=== PATIENT | female | born 1980 | race Caucasian/White ===

== ENCOUNTER 2018-10-14 10:50 | Emergency (ER) | payer MEDICAID ==
[~2018-10-14] VITALS: Ht 165.1 cm; Wt 86.2 kg
--- NOTE | 2018-10-14 10:53 | NUR ---
PATIENT AMBULATED TO BED 3 AT THIS TIME.
[2018-10-14 10:56] VITALS: BP 91/66
--- NOTE | 2018-10-14 11:00 | NUR ---
PT BIB self c/o hacking dry cough , headache, throat pain, and anterior chest wall pain with coughing spells, mild loss of voice. pt reports sharp pain at 6/10 in anterior chest wall with cough. Coarse breath sounds in RT lower lobe. er md to see pt. hx--denies rx---none
[2018-10-14] MEDS ORDERED: IPRATROPIUM 0.02% 0.5 MG/2.5 ML NEBU INH ONE (11:05)
[2018-10-14] MEDS ORDERED: predniSONE 20 MG TAB PO ONE (11:05)
[2018-10-14] MEDS ORDERED: ONDANSETRON 4 MG ODT PO ONE (11:05)
[2018-10-14] MEDS ORDERED: ALBUTEROL 0.083% 2.5 MG/3 ML NEBU INH ONE ×2 (11:05→12:00)
--- NOTE | 2018-10-14 11:25 | NUR ---
RT AT BEDSIDE PERFORMING BREATHING TX AT THIS TIME.
--- NOTE | 2018-10-14 12:09 | NUR ---
RT AT BEDSIDE AT THIS TIME PROVIDING BREATHING TX.
[2018-10-14 12:47] VITALS: BP 122/61
--- NOTE | 2018-10-14 12:49 | NUR ---
PT RESTING IN BED, REPORTS NO PAIN OR NAUSEA AT THIS TIME. STATES SHE STILL FEEL SOB, RR 16, NON-LABORED, EVEN, LUNG SOUNDS CLEAR THROUGHOUT, PT TACHYCARDIC AT 121. Addendum: 10/14/18 at 1311 by CELESTINA JULIA SORENSEN CLARIFIED WITH PT, PT STATED THAT SHE IS NOT SOB.
--- NOTE | 2018-10-14 13:10 | NUR ---
Patient discharged with v/s stable. Written and verbal after care instructions given and explained. Patient alert, oriented and verbalized understanding of instructions. Ambulatory with steady gait. All questions addressed prior to discharge. ID band removed. Patient advised to follow up with PMD. Rx of ALBUTEROL, TESSALON PEARLES, AND PREDNISONE given. Patient educated on indication of medication including possible reaction and side effects. Opportunity to ask questions provided and answered.
== END 2018-10-14 13:10 | disposition home or self-care (01) ==
LOC: MED 10:50
DX: J98.01 Acute bronchospasm (principal); B34.9 Viral infection, unspecified
CPT/HCPCS: 71045; 81025; 93005; 94640; 99284; J7512; J7613; J7644; Q0092; Q0162